=== PATIENT | female | born 1975 | race Caucasian/White ===

== ENCOUNTER → 2016-07-06 | Outpatient (CLI) | payer BC ==
[2014-10-12 15:37] VITALS: BP 98/51
[~2016-07-06] MED LIST: LEVO50TA5 PO
--- NOTE | 2016-07-06 12:49 | RAD ---
Chest, 2 views, 07/06/2016: History: Cough, shortness of breath Comparison is made to a study from 10/10/2014. The heart size and pulmonary vascularity are normal. No pulmonary infiltrates are seen. There is no evidence of pleural fluid. There is a mild pectus excavatum deformity. Mild spurring is present in the spine. IMPRESSION: No acute cardiopulmonary abnormality is detected.
== END | disposition home or self-care (01) ==
LOC: RAD 11:16
PROVIDERS: ATTEND Internal Medicine Pulmonary Disease
DX: R05 Cough (principal)
CPT/HCPCS: 71020

== ENCOUNTER → 2016-07-24 | Outpatient (CLI) | payer BC ==
[2014-10-12 15:37] VITALS: BP 98/51
== END | disposition home or self-care (01) ==
LOC: PF 08:56
PROVIDERS: ATTEND Internal Medicine Pulmonary Disease
DX: R06.00 Dyspnea, unspecified (principal)
CPT/HCPCS: 94010; 94729

== ENCOUNTER 2018-03-31 15:57 | Emergency (ER) | payer BC, OTHER ==
[~2018-03-31] VITALS: Ht 157.5 cm; Wt 68.9 kg
[2018-03-31] MEDS ORDERED: ONDANSETRON PF 4 MG/2 ML VIAL. IV ONE (16:45)
[2018-03-31] MEDS ORDERED: fentaNYL PF VIAL 100 MCG/2 ML VIAL IV ONE (16:45)
[2018-03-31] MEDS ORDERED: IOHEXOL 300 MG/ML 100ML VIAL. IV ONE (16:45)
[2018-03-31] MEDS ORDERED: FAMOTIDINE 20 MG/2 ML VIAL IVP ONE (16:45)
[2018-03-31] MEDS ORDERED: IV NORMAL SALINE 1000ML BAG 1,000 ML IV ONE (16:45)
[2018-03-31 16:49] LABS: BASO # 0.1 x10^3/uL (0.0-0.2); BASO % 1 % (0-3); EOS # 0.4 x10^3/uL (0.0-0.7); EOS % 4 % (0-3); HEMATOCRIT 39.1 % (36.0-47.0); HEMOGLOBIN 13.1 g/dL (12.0-15.5); LYMPH # 2.1 x10^3/uL (1.0-4.8); LYMPH % 26 % (24-48); MEAN CORPUSCULAR HEMOGLOBIN 31 pg (25-35); MEAN CORPUSCULAR HGB CONC 34 g/dL (31-37); MEAN CORPUSCULAR VOLUME 93 fL (79-100); MONO # 0.6 x10^3/uL (0.0-1.1); MONO % 7 % (0-9); NEUT % 62 % (31-73); PLATELET COUNT 284 x10^3/uL (140-400); RED BLOOD COUNT 4.19 x10^6/uL (3.50-5.40); RED CELL DISTRIBUTION WIDTH 13.3 % (11.5-14.5); WHITE BLOOD COUNT 8.1 x10^3/uL (4.0-11.0)
[2018-03-31 16:59] LABS: PROTHROMBIN TIME PATIENT 12.8 SEC (11.7-14.0)
[2018-03-31] MEDS ORDERED: CONTRAST GIVEN. MC PRN (17:00)
[2018-03-31 17:06] LABS: CALCIUM 9.6 mg/dL (8.5-10.1); CREATININE 0.7 mg/dL (0.6-1.0); GFR 91.3; MAGNESIUM 2.1 mg/dL (1.8-2.4); POTASSIUM 3.5 mmol/L (3.5-5.1); TOTAL BILIRUBIN 0.2 mg/dL (0.2-1.0); TOTAL PROTEIN 8.2 g/dL (6.4-8.2)
[2018-03-31 17:07] LABS: BILIRUBIN,URINE NEGATIVE (NEG); CLARITY,URINE CLEAR; COLOR,URINE YELLOW; NITRITE,URINE NEGATIVE (NEG); PROTEIN,URINE NEGATIVE (NEG-TRACE); UROBILINOGEN,URINE 0.2 mg/dL (0.2 mg/dL)
[2018-03-31 17:16] LABS: U PREG PATIENT NEGATIVE (NEG)
[2018-03-31 17:18] LABS: BACTERIA,URINE MANY /HPF (0-FEW); RBC,URINE 0 /HPF (0-2); SQUAMOUS EPITHELIAL CELL,UR MANY /LPF; WBC,URINE OCC /HPF (0-4)
--- NOTE | 2018-03-31 17:22 | PHYS DOC ---
Past Medical History Past Medical History: Hypothyroid, Other Additional Past Medical Histor: SVT, CELIACS DZ Past Surgical History: Other Additional Past Surgical Histo: SPHINCTER Alcohol Use: Occasionally Drug Use: None Adult General Chief Complaint Chief Complaint: ABDOMINAL PAIN HPI HPI Patient is a 42 year old female with past medical history of celiac disease and hypothyroidism presenting with right lower quadrant abdominal pain. Patient notes the abdominal pain started on Saturday and was diffuse and constant. Patient describes pain as a "fullness similar to the feeling of having to urinate" with a severity of 8 out of 10. Patient notes associated nausea and anorexia. Patient denies vomiting or change in stools. Patient notes she has had darker stools for the last month and that her last bowel movement was yesterday. Patient denies dysuria, urinary urgency or frequency, and states that her last menstrual period was 3 weeks ago. Patient was at her primary care physician earlier today and was sent to the emergency department for evaluation for suspected appendicitis. Review of Systems Review of Systems Constitutional: Denies fever, notes chills [] Eyes: Denies change in visual acuity, redness, or eye pain [] HENT: Denies nasal congestion or sore throat [] Respiratory: Denies cough or shortness of breath [] Cardiovascular: Denies chest pain or palpitations[] GI: Notes abdominal pain, nausea, constipation.[] : Denies dysuria or hematuria [] Musculoskeletal: Denies back pain or joint pain [] Integument: Denies rash or skin lesions [] Neurologic: Denies headache, focal weakness or sensory changes [] Complete systems were reviewed and found to be within normal limits, except as documented in this note. Current Medications Current Medications Current Medications Medications (Trade) Dose Ordered Sig/Guilherme Start Time Stop Time Status Last Admin Dose Admin Ciprofloxacin (Cipro) 500 mg 1X ONCE 03/31/18 19:00 03/31/18 19:03 DC 03/31/18 19:38 500 MG Famotidine (Pepcid Vial) 20 mg 1X ONCE 03/31/18 16:45 03/31/18 16:46 DC 03/31/18 16:57 20 MG Fentanyl Citrate (Fentanyl 2ml Vial) 50 mcg 1X ONCE 03/31/18 16:45 03/31/18 16:55 DC Info (CONTRAST GIVEN -- Rx MONITORING) 1 each PRN DAILY PRN 03/31/18 17:00 03/31/18 19:54 DC Iohexol (Omnipaque 300 Mg/ml) 75 ml 1X ONCE 03/31/18 16:45 03/31/18 16:47 DC Metronidazole (Flagyl) 500 mg 1X ONCE 03/31/18 19:00 18 19:03 DC 03/31/18 19:38 500 MG Ondansetron HCl (Zofran) 4 mg 1X ONCE 03/31/18 16:45 03/31/18 16:46 DC 03/31/18 16:57 4 MG Sodium Chloride 1,000 ml @ 1,000 mls/hr 1X ONCE 03/31/18 16:45 03/31/18 17:44 DC 03/31/18 16:57 1,000 MLS/HR Allergies Allergies Allergies Coded Allergies Type Severity Reaction Last Updated Verified gluten Allergy Unknown 03/31/18 Yes Physical Exam Physical Exam Constitutional: Well developed, well nourished, no acute distress, non-toxic appearance. [] HENT: Normocephalic, atraumatic, oropharynx moist Eyes: PERRL, EOMI, no discharge. [] Neck: Normal range of motion, no tenderness, supple Cardiovascular: Heart rate regular rhythm, no murmur [] Lungs & Thorax: Bilateral breath sounds clear to auscultation [] Abdomen: Soft, no guarding, nondistended, RLQ tenderness, + Rovsing sign, + Obturator sign [] Skin: Warm, dry, no erythema, no rash. [] Back: No tenderness, no CVA tenderness. [] Extremities: No tenderness, ROM intact, no edema. [] Neurologic: Alert and oriented X 3, normal motor function, normal sensory function, no focal deficits noted. [] Psychologic: Affect normal, judgement normal, mood normal. [] Current Patient Data Vital Signs Vital Signs Date Time Temp Pulse Resp B/P (MAP) Pulse Ox O2 Delivery O2 Flow Rate FiO2 03/31/18 18:30 72 16 104/59 (74) 98 Room Air 03/31/18 16:31 98.1 98.1 Lab Values Laboratory Tests Test 03/31/18 16:30 03/31/18 16:50 White Blood Count 8.1 x10^3/uL (4.0-11.0) Red Blood Count 4.19 x10^6/uL (3.50-5.40) Hemoglobin 13.1 g/dL (12.0-15.5) Hematocrit 39.1 % (36.0-47.0) Mean Corpuscular Volume 93 fL (79-100) Mean Corpuscular Hemoglobin 31 pg (25-35) Mean Corpuscular Hemoglobin Concent 34 g/dL (31-37) Red Cell Distribution Width 13.3 % (11.5-14.5) Platelet Count 284 x10^3/uL (140-400) Neutrophils (%) (Auto) 62 % (31-73) Lymphocytes (%) (Auto) 26 % (24-48) Monocytes (%) (Auto) 7 % (0-9) Eosinophils (%) (Auto) 4 % (0-3) H Basophils (%) (Auto) 1 % (0-3) Neutrophils # (Auto) 5.0 x10^3uL (1.8-7.7) Lymphocytes # (Auto) 2.1 x10^3/uL (1.0-4.8) Monocytes # (Auto) 0.6 x10^3/uL (0.0-1.1) Eosinophils # (Auto) 0.4 x10^3/uL (0.0-0.7) Basophils # (Auto) 0.1 x10^3/uL (0.0-0.2) Prothrombin Time 12.8 SEC (11.7-14.0) Prothrombin Time INR 1.0 (0.8-1.1) PTT 30 SEC (24-38) Sodium Level 139 mmol/L (136-145) Potassium Level 3.5 mmol/L (3.5-5.1) Chloride Level 101 mmol/L (98-107) Carbon Dioxide Level 25 mmol/L (21-32) Anion Gap 13 (6-14) Blood Urea Nitrogen 11 mg/dL (7-20) Creatinine 0.7 mg/dL (0.6-1.0) Estimated GFR (Cockcroft-Gault) 91.3 BUN/Creatinine Ratio 16 (6-20) Glucose Level 93 mg/dL (70-99) Calcium Level 9.6 mg/dL (8.5-10.1) Magnesium Level 2.1 mg/dL (1.8-2.4) Total Bilirubin 0.2 mg/dL (0.2-1.0) Aspartate Amino Transferase (AST) 9 U/L (15-37) L Alanine Aminotransferase (ALT) 17 U/L (14-59) Alkaline Phosphatase 94 U/L (46-116) Total Protein 8.2 g/dL (6.4-8.2) Albumin 4.0 g/dL (3.4-5.0) Albumin/Globulin Ratio 1.0 (1.0-1.7) Lipase 107 U/L (73-393) Urine Collection Type Unknown Urine Color Yellow Urine Clarity Clear Urine pH 7.0 Urine Specific [place] 1.010 Urine Protein Negative mg/dL (NEG-TRACE) Urine Glucose (UA) Negative mg/dL (NEG) Urine Ketones (Stick) Negative mg/dL (NEG) Urine Blood Negative (NEG) Urine Nitrite Negative (NEG) Urine Bilirubin Negative (NEG) Urine Urobilinogen Dipstick 0.2 mg/dL (0.2 mg/dL) Urine Leukocyte Esterase Negative (NEG) Urine RBC 0 /HPF (0-2) Urine WBC Occ /HPF (0-4) Urine Squamous Epithelial Cells Many /LPF Urine Bacteria Many /HPF (0-FEW) Urine Test Negative (NEG) Laboratory Tests 03/31/18 16:30 Laboratory Tests 03/31/18 16:30 Microbiology 03/31/18 Urine Culture - Final, Complete 03/31/18 Urine Culture Result 1 (LITA) - Final, Complete EKG EKG [] Radiology/Procedures Radiology/Procedures PROCEDURE: CT ABD PELV W/ IV CONTRST ONLY CT abdomen pelvis with contrast dated 03/31/2018. No comparison available. Clinical data indication: Right lower quadrant pain. TECHNIQUE: Contiguous axial imaging of the abdomen and pelvis performed after the intravenous administration of 75 cc Omnipaque 300. One or more of the following individualized dose reduction techniques were utilized for this examination: 1. Automated exposure control 2. Adjustment of the mA and/or kV according to patient size 3. Use of iterative reconstruction technique. FINDINGS: Limited images of lung bases are clear. Heart size within normal limits. No pleural or pericardial effusion. Liver, spleen, pancreas, adrenal glands, gallbladder and kidneys are unremarkable. No hydronephrosis. Unopacified GI tract normal in caliber. There is a focal area of wall thickening involving the hepatic flexure of the colon. Adjacent inflammatory stranding with a few scattered diverticula. The appendix is separate from this inflammatory process and is normal in caliber. No additional inflammatory changes in the mesentery. No free fluid or lymphadenopathy. Abdominal aorta normal in caliber. Images of pelvis show nondistended urinary bladder. The uterus is unremarkable. Small amount of free pelvic fluid. No pelvic lymphadenopathy. Small complex cyst at the left ovary measures 1.2 cm. Bone windows show no acute findings. Grade 1 spondylolisthesis and bilateral spondylolysis at L5-S1. IMPRESSION: 1. Focal wall thickening and inflammatory changes involving the hepatic flexure of the colon, most likely related to acute diverticulitis. An underlying mass cannot be excluded. Suggest follow-up imaging after treatment to ensure resolution. No evidence of abscess or pneumoperitoneum. 2. Normal appendix. 3. Small amount of free pelvic fluid, nonspecific. 4. Grade 1 spondylolisthesis and bilateral spondylolysis at L5-S1. Electronically signed by: Marcelino Coon MD (03/31/2018 6:25 PM) [facility] Course & Med Decision Making Course & Med Decision Making 42 yo female sent from PCP with RLQ abdominal pain. Abdominal exam shows significant RLQ tenderness with some evidence of peritoneal irritation. Pt offered fentanyl for pain but declined. Pt given symptomatic treatment with Pepcid and Zofran IV. CT abd/pel shows evidence of diverticulitis at hepatic flexure without evidence of abscess or perforation. Appendix appears normal. Diagnosed as uncomplicated diverticulitis with Hinchey class 0. Pt suitable for outpatient management with Flagyl, Cipro, and liquid diet and low fiber foods. Empiric antibiotics initiated. Pt given resources to f/u with gastroenterology. Pt given strict return precautions including new onset fever or worsening symptoms. Patient stable for discharge with outpatient follow-up with PCP/GI. Discussed findings and plan with patient, who acknowledges understanding and agreement. Dragon Disclaimer Dragon Disclaimer This electronic medical record was generated, in whole or in part, using a voice recognition dictation system. Departure Departure Impression: Primary Impression: Diverticulitis Disposition: 01 HOME, SELF-CARE Condition: STABLE Referrals: GIOVANNA HERNANDEZ DO (PCP) JOSE L CORMIER MD Patient Instructions: Diverticulitis, [id number] Additional Instructions: Please provide copy of your CT report to your doctors. Scripts Famotidine (PEPCID) 20 Mg Tablet 20 MG PO BID, #14 TAB Prov: MARCELINO SANDY DO 03/31/18 Metronidazole (FLAGYL) 500 Mg Tablet 500 MG PO TID, #21 TAB Prov: MARCELINO SANDY DO 03/31/18 Ciprofloxacin Hcl (CIPRO) 500 Mg Tablet 1 TAB PO BID, #14 TAB Prov: MARCELINO SANDY DO 03/31/18 Ondansetron (ONDANSETRON ODT) 4 Mg Tab.rapdis 1 TAB PO PRN Q6-8HRS for VOMITING, #16 TAB Prov: MARCELINO SANDY DO 03/31/18 MARCELINO SANDY DO Mar 31, 2018 17:22
--- NOTE | 2018-03-31 18:28 | RAD ---
CT abdomen pelvis with contrast dated 03/31/2018. No comparison available. Clinical data indication: Right lower quadrant pain. TECHNIQUE: Contiguous axial imaging of the abdomen and pelvis performed after the intravenous administration of 75 cc Omnipaque 300. One or more of the following individualized dose reduction techniques were utilized for this examination: 1. Automated exposure control 2. Adjustment of the mA and/or kV according to patient size 3. Use of iterative reconstruction technique. FINDINGS: Limited images of lung bases are clear. Heart size within normal limits. No pleural or pericardial effusion. Liver, spleen, pancreas, adrenal glands, gallbladder and kidneys are unremarkable. No hydronephrosis. Unopacified GI tract normal in caliber. There is a focal area of wall thickening involving the hepatic flexure of the colon. Adjacent inflammatory stranding with a few scattered diverticula. The appendix is separate from this inflammatory process and is normal in caliber. No additional inflammatory changes in the mesentery. No free fluid or lymphadenopathy. Abdominal aorta normal in caliber. Images of pelvis show nondistended urinary bladder. The uterus is unremarkable. Small amount of free pelvic fluid. No pelvic lymphadenopathy. Small complex cyst at the left ovary measures 1.2 cm. Bone windows show no acute findings. Grade 1 spondylolisthesis and bilateral spondylolysis at L5-S1. IMPRESSION: 1. Focal wall thickening and inflammatory changes involving the hepatic flexure of the colon, most likely related to acute diverticulitis. An underlying mass cannot be excluded. Suggest follow-up imaging after treatment to ensure resolution. No evidence of abscess or pneumoperitoneum. 2. Normal appendix. 3. Small amount of free pelvic fluid, nonspecific. 4. Grade 1 spondylolisthesis and bilateral spondylolysis at L5-S1. Electronically signed by: Marcelino Coon MD (03/31/2018 6:25 PM) [facility]
[2018-03-31 18:30] VITALS: BP 104/59
[2018-03-31] MEDS ORDERED: CIPROFLOXACIN HCL 250 MG TABLET. PO ONE (19:00)
[2018-03-31] MEDS ORDERED: metroNIDAZOLE 500 MG TABLET PO ONE (19:00)
[2018-03-31] MEDS ORDERED: FAMO-63 PO (19:13)
[2018-03-31] MEDS ORDERED: ONDA4TAB12 PO (19:13)
[2018-03-31] MEDS ORDERED: CIPR500T94 PO (19:13)
[2018-03-31] MEDS ORDERED: METR500T PO (19:13)
== END 2018-03-31 19:50 | disposition home or self-care (01) ==
LOC: ER 15:57
DX: K57.92 Diverticulitis of intestine, part unspecified, without perforation or abscess without bleeding (principal); M43.07 Spondylolysis, lumbosacral region; E03.9 Hypothyroidism, unspecified; Z88.8 Allergy status to other drugs, medicaments and biological substances
CPT/HCPCS: 36415; 74177; 80053; 81001; 81025; 83690; 83735; 85025; 85610; 85730; 87086; 96374; 96375; 99284; J2405; J3490; J7030

== ENCOUNTER → 2018-07-04 | Day surgery (SDC) | payer OTHER ==
[~2018-07-04] MED LIST changes: +CIPR500T94 PO; +FAMO-63 PO; +HYDROmorphone 2 MG/ML VIAL IV PRN; +IV RINGERS,LACTATED 1000ML 1,000 ML IV SCH; +LIDOCAINE 1% PF 2 ML VIAL. ID PRN; +LIDOCAINE 1% PF 2 ML VIAL. ONE; +METR500T PO; +MORPHINE SULFATE 2 MG/ML VIAL. IV PRN; +ONDA4TAB12 PO; +PROCHLORPERAZINE 10 MG/2 ML VIAL. IV PRN; +PROPOFOL 40 ML IV ONE; +fentaNYL PF VIAL 100 MCG/2 ML VIAL IV PRN
[2018-07-04 07:53] LABS: U PREG PATIENT NEGATIVE (NEG)
[2018-07-04 08:30] VITALS: BP 103/57
== END | disposition home or self-care (01) ==
LOC: SURG 07:18
PROVIDERS: ATTEND Internal Medicine Gastroenterology
DX: K57.30 Diverticulosis of large intestine without perforation or abscess without bleeding (principal); K64.0 First degree hemorrhoids; F41.9 Anxiety disorder, unspecified; J45.909 Unspecified asthma, uncomplicated; Z82.49 Family history of ischemic heart disease and other diseases of the circulatory system; Z72.89 Other problems related to lifestyle; Z79.899 Other long term (current) drug therapy; Z98.890 Other specified postprocedural states; Z88.1 Allergy status to other antibiotic agents; Z88.8 Allergy status to other drugs, medicaments and biological substances
CPT/HCPCS: 45378; 81025; J2704